=== PATIENT | male | born 1990 | race African-American/Black ===

== ENCOUNTER 2021-02-20 12:34 | Emergency (ER) | payer OTHER ==
[~2021-02-20] VITALS: Ht 172.7 cm; Wt 72.6 kg
[2021-02-20 12:45] VITALS: BP 155/91
--- NOTE | 2021-02-20 13:34 | NUR ---
seen by er provider dr gimenez, 1 kaity steward taken out. pt refusing wound care. medically cleared. discharge to [facility] in stable condition.
[2021-02-21] MEDS ORDERED: LORAZEPAM INJ 2 MG/ML VIAL ONE (08:12)
== END 2021-02-20 13:39 ==
LOC: ER 12:36
DX: T75.4XXA Electrocution, initial encounter (principal); W86.8XXA Exposure to other electric current, initial encounter; Y93.89 Activity, other specified; Y92.89 Other specified places as the place of occurrence of the external cause; Y99.8 Other external cause status
CPT/HCPCS: J2060